=== PATIENT | female | born 1975 | race Caucasian/White ===

== ENCOUNTER 2022-04-20 23:09 | Inpatient (IN) | payer BC ==
[~2022-04-20 23:09] MED LIST: Iopamidol 370 76% 100 ML VIAL ONE
[2022-04-21 00:35] LABS: #Basophils 0.1 thou/uL (0.0-0.2); #Eosinphils 0.1 thou/uL (0.0-0.7); #Lymphocytes 1.6 thou/uL (1.20-3.40); #Monocytes 0.6 thou/uL (0.11-0.59); #Neutrophils 6.5 thou/uL (1.40-6.50); %Basophils 0.6 % (0.0-1.0); %Eosinophils 0.7 % (0.0-10.0); %Lymphocytes 17.9 % (21.0-51.0); %Monocytes 6.8 % (0.0-10.0); Hemoglobin 13.4 g/dL (12.0-16.0); Mean Corpuscular HGB CONC 33.7 g/dL (32.0-36.0); Mean Corpuscular Hemoglobin 30.6 pg (27.0-31.0); Mean Corpuscular Volume 90.9 fL (78.0-98.0); Mean Platelet Volume 7.5 fL (7.4-10.4); Platelet Count 273 thou/uL (130-400); RBC Distribution Width 11.3 % (11.5-14.5); Red Blood Cell (RBC) Count 4.37 mill/uL (4.20-5.40); White Blood Cell (WBC) Count 8.8 thou/uL (4.8-10.8)
[2022-04-21 00:46] LABS: PTT 28.6 sec (22.9-36.1); Prothrombin Time 13.6 sec (12.0-14.7)
[2022-04-21] MEDS ORDERED: Aspirin 325 MG TAB ONE (00:47)
[2022-04-21 00:54] LABS: ALT (SGPT) 17 U/L (8-55); AST (SGOT) 17 U/L (5-34); Albumin 4.3 g/dL (3.5-5.0); Alkaline Phosphatase 83 U/L (40-110); Anion Gap 14 mmol/L (10-20); BUN (Urea Nitrogen) 8 mg/dL (7.0-18.7); Bilirubin, Total 0.6 mg/dL (0.2-1.2); Calc. Creatinine Clearance 0 mL/min (70-130); Calcium 9.3 mg/dL (7.8-10.44); Carbon Dioxide 24 mmol/L (22-29); Chloride 104 mmol/L (98-107); Globulin 2.5 g/dL (2.4-3.5); Glucose 97 mg/dL (70-105); Potassium 3.6 mmol/L (3.5-5.1); Protein, Total 6.8 g/dL (6.0-8.3); Sodium 138 mmol/L (136-145)
[2022-04-21 02:21] LABS: Hemoglobin A1c 5.3 % (4.0-6.0)
[2022-04-21 02:25] LABS: Cardiac Risk 2.3 (Less than 4.5)
[2022-04-21 03:32] VITALS: BMI 28.0
[2022-04-21 06:13] LABS: Troponin I Less than 0.010 ng/mL (< 0.028)
[2022-04-21 09:16] LABS: Troponin I Less than 0.010 ng/mL (< 0.028)
[2022-04-21] MEDS ORDERED: Acetaminophen 325 MG TAB PO PRN (09:25)
[2022-04-21] MEDS ORDERED: Acetaminophen 325 MG TAB PO SCH (09:30)
[2022-04-21] MEDS ORDERED: Magnevist 469MG/ML 20 ML VIAL ONE (09:31)
[2022-04-21] MEDS ORDERED: hydrALAZINE 20 MG/ML VIAL SLOW IVP SCH (10:50)
[2022-04-21] MEDS ORDERED: hydrALAZINE 20 MG/ML VIAL SLOW IVP PRN (10:50)
[2022-04-21 12:25] LABS: Amphetamine Not Detected (NotDetected); Barbiturates Screen Not Detected (NotDetected); Benzodiazepine Screen Not Detected (NotDetected); Cocaine Metabolite Screen Not Detected (NotDetected); Methadone Not Detected (NotDetected); Methamphetamine Not Detected (NotDetected); Opiate Screen Not Detected (NotDetected); Oxycodone Screen Not Detected (NotDetected); Phencyclidine (PCP) Not Detected (NotDetected); THC/Cannabinoid Screen Not Detected (NotDetected); Tricyclic Screen Not Detected (NotDetected)
[2022-04-21] MEDS ORDERED: Lorazepam 0.5 MG TAB PO SCH (13:00)
[2022-04-21 17:45] LABS: HIV (1/2) Antibody/Antigen Non-Reactive (NonReactive); HIV 1/2 INDEX 0.08 S/CO (<1.00)
[2022-04-21] MEDS: Atorvastatin Calcium 40 MG TAB PO SCH (20:35)
[2022-04-22 05:07] LABS: #Eosinphils 0.1 thou/uL (0.0-0.7); #Lymphocytes 1.9 thou/uL (1.20-3.40); #Monocytes 0.6 thou/uL (0.11-0.59); #Neutrophils 4.1 thou/uL (1.40-6.50); %Basophils 0.6 % (0.0-1.0); %Eosinophils 1.9 % (0.0-10.0); %Lymphocytes 27.7 % (21.0-51.0); %Monocytes 9.3 % (0.0-10.0); %Neutrophils 60.5 % (42.0-75.0); Hemoglobin 14.3 g/dL (12.0-16.0); Mean Corpuscular HGB CONC 33.8 g/dL (32.0-36.0); Mean Corpuscular Hemoglobin 30.4 pg (27.0-31.0); Mean Corpuscular Volume 89.9 fL (78.0-98.0); Mean Platelet Volume 6.9 fL (7.4-10.4); Platelet Count 273 thou/uL (130-400); RBC Distribution Width 11.7 % (11.5-14.5); White Blood Cell (WBC) Count 6.7 thou/uL (4.8-10.8)
[2022-04-22 05:32] LABS: ALT (SGPT) 17 U/L (8-55); AST (SGOT) 16 U/L (5-34); Albumin 4.3 g/dL (3.5-5.0); Alkaline Phosphatase 82 U/L (40-110); Anion Gap 14 mmol/L (10-20); BUN (Urea Nitrogen) 9 mg/dL (7.0-18.7); Bilirubin, Total 0.7 mg/dL (0.2-1.2); Calc. Creatinine Clearance 99 mL/min (70-130); Calcium 9.8 mg/dL (7.8-10.44); Carbon Dioxide 23 mmol/L (22-29); Chloride 106 mmol/L (98-107); Globulin 3.1 g/dL (2.4-3.5); Glucose 86 mg/dL (70-105); Potassium 3.9 mmol/L (3.5-5.1); Protein, Total 7.4 g/dL (6.0-8.3); Sodium 139 mmol/L (136-145)
[2022-04-22] MEDS ORDERED: Lisinopril 20 MG TAB PO SCH (09:00)
[2022-04-22] MEDS ORDERED: Aspirin 81 mg Enteric Coated Tablet PO SCH (09:00)
[2022-04-22] MEDS ORDERED: levETIRAcetam 500 MG TAB PO SCH ×2 (10:00→21:00)
[2022-04-22] MEDS: Aspirin Chewable 81 MG TAB PO SCH ×2 (10:30→10:49)
[2022-04-22] MEDS ORDERED: Lorazepam 0.5 MG TAB PO SCH (10:30)
[2022-04-22] MEDS: Lisinopril 20 MG TAB PO SCH (10:49)
[2022-04-22 11:18] LABS: Syphilis Antibody Nonreactive (Nonreactive); Syphilis Antibody Index 0.07 S/CO (<1.00 Non-Reactive)
[2022-04-22] MEDS: levETIRAcetam 500 mg/5 ml Oral Solution PO SCH (21:03)
[2022-04-22] MEDS: Atorvastatin Calcium 40 MG TAB PO SCH (21:03)
[2022-04-23] MEDS: Aspirin Chewable 81 MG TAB PO SCH (08:06)
[2022-04-23] MEDS: levETIRAcetam 500 mg/5 ml Oral Solution PO SCH ×2 (08:06→21:30)
[2022-04-23] MEDS: Lisinopril 20 MG TAB PO SCH (08:06)
[2022-04-23] MEDS: Atorvastatin Calcium 40 MG TAB PO SCH (21:30)
[2022-04-24] MEDS: Lisinopril 20 MG TAB PO SCH (08:17)
[2022-04-24] MEDS: Aspirin Chewable 81 MG TAB PO SCH (08:17)
[2022-04-24] MEDS: levETIRAcetam 500 mg/5 ml Oral Solution PO SCH ×2 (08:17→21:00)
[2022-04-24] MEDS: Atorvastatin Calcium 40 MG TAB PO SCH (21:00)
[2022-04-25] MEDS: Lisinopril 20 MG TAB PO SCH (08:53)
[2022-04-25] MEDS: Aspirin Chewable 81 MG TAB PO SCH (08:53)
[2022-04-25] MEDS: levETIRAcetam 500 mg/5 ml Oral Solution PO SCH ×2 (08:53→20:54)
[2022-04-25] MEDS: Atorvastatin Calcium 40 MG TAB PO SCH (20:54)
[2022-04-26] MEDS: Lisinopril 20 MG TAB PO SCH (08:36)
[2022-04-26] MEDS: Aspirin Chewable 81 MG TAB PO SCH (08:36)
[2022-04-26] MEDS: levETIRAcetam 500 mg/5 ml Oral Solution PO SCH ×2 (08:37→21:05)
[2022-04-26] MEDS: Atorvastatin Calcium 40 MG TAB PO SCH (21:05)
[2022-04-27] MEDS: levETIRAcetam 500 mg/5 ml Oral Solution PO SCH (09:12)
[2022-04-27] MEDS: Aspirin Chewable 81 MG TAB PO SCH (09:12)
[2022-04-27] MEDS: Lisinopril 20 MG TAB PO SCH (09:12)
[2022-04-27 11:49] VITALS: BP 104/63; TEMP 98.7
== END 2022-04-27 15:58 | DRG 92 ==
LOC: ERS 23:09 → NEURO 04-21 01:11 → EEVIPCON 04-21 01:11
PROVIDERS: ADMIT Student in an Organized Health Care Education/Training Program; ATTEND Emergency Medicine
DX: G83.84 Todd's paralysis (postepileptic) (principal); G45.9 Transient cerebral ischemic attack, unspecified; I16.1 Hypertensive emergency; R47.01 Aphasia; F44.5 Conversion disorder with seizures or convulsions; G81.94 Hemiplegia, unspecified affecting left nondominant side; Z20.822 Contact with and (suspected) exposure to COVID-19; I10 Essential (primary) hypertension; F41.0 Panic disorder [episodic paroxysmal anxiety]; F41.9 Anxiety disorder, unspecified; E78.5 Hyperlipidemia, unspecified; J98.4 Other disorders of lung; R47.1 Dysarthria and anarthria; Z79.899 Other long term (current) drug therapy
CPT/HCPCS: 36415; 70450; 70496; 70498; 70551; 70552; 71045; 80053; 80061; 80306; 80307; 83036; 84146; 84443; 84484; 85025; 85610; 85652; 85730; 86140; 86780; 87389; 93005; 95712; 95819; 95957; A9579; J0360; Q9967; U0003; U0005